=== PATIENT | male | born 2000 | race African-American/Black ===

== ENCOUNTER 2023-03-26 11:09 | Emergency (ER) | payer BC ==
[~2023-03-26] VITALS: Ht 208.3 cm; Wt 94.0 kg
[2023-03-26 11:20] VITALS: BP 140/98; PULSE 56; RESP 18; TEMP 98.2; O2SAT 100
[2023-03-26] MEDS ORDERED: POLY10DR17 EACHEYE (14:54)
== END 2023-03-26 15:05 | disposition home or self-care (01) ==
LOC: ER 11:09
DX: H10.023 Other mucopurulent conjunctivitis, bilateral (principal)
CPT/HCPCS: 99283